=== PATIENT | female | born 1955 | race Caucasian/White ===

== ENCOUNTER 2022-12-09 23:29 | Inpatient (IN) | payer MEDICARE ==
[2022-12-10 00:33] LABS: #Monocytes 0.6 thou/uL (0.11-0.59); #Neutrophils 17.3 thou/uL (1.40-6.50); %Basophils 0.2 % (0.0-1.0); %Eosinophils 0.2 % (0.0-10.0); %Lymphocytes 8.7 % (21.0-51.0); %Monocytes 3.2 % (0.0-10.0); %Neutrophils 86.5 % (42.0-75.0); Hemoglobin 10.8 g/dL (12.0-16.0); Mean Corpuscular HGB CONC 31.1 g/dL (32.0-36.0); Mean Corpuscular Volume 102.7 fl (78.0-98.0); Mean Platelet Volume 11.3 fL (7.4-10.4); Platelet Count 198 10x3/uL (130-400); RBC Distribution Width 15.8 % (11.5-14.5); Red Blood Cell (RBC) Count 3.38 mill/uL (4.20-5.40)
[2022-12-10 00:44] LABS: INR-International Normal Ratio 1.6; Prothrombin Time 19.7 sec (12.0-14.7)
[2022-12-10 00:45] LABS: PTT 32.1 sec (22.9-36.1)
[2022-12-10 00:58] LABS: ALT (SGPT) Less than 7 U/L (8-55); AST (SGOT) 12 U/L (5-34); Albumin 3.3 g/dL (3.4-4.8); Alkaline Phosphatase 102 U/L (40-110); Anion Gap 24 mmol/L (10-20); BUN (Urea Nitrogen) 114 mg/dL (9.8-20.1); Bilirubin, Total 0.4 mg/dL (0.2-1.2); Calc. Creatinine Clearance 0 mL/min (70-130); Carbon Dioxide 15 mmol/L (23-31); Chloride 106 mmol/L (98-107); Estimated GFR 6; Globulin 3.8 g/dL (2.4-3.5); Glucose 97 mg/dL (80-115); Magnesium 1.7 mg/dL (1.6-2.6); Potassium 5.8 mmol/L (3.5-5.1); Protein, Total 7.1 g/dL (5.8-8.1); Sodium 139 mmol/L (136-145)
[2022-12-10 01:43] LABS: Lipase 23 U/L (8-78)
[2022-12-10] MEDS ORDERED: cefTRIAXone (ROCEPHIN) 2 GM VIAL ONE (02:52)
[2022-12-10] MEDS ORDERED: Pantoprazole 40 MG VIAL ONE ×2 (02:52→10:17)
[2022-12-10] MEDS ORDERED: Ipratropium/Albuterol 3 ML NEB NEB PRN (03:39)
[2022-12-10] MEDS ORDERED: Calcium Gluc 4.6 MEQ/10 ML (100 MG/ML) SLOW IVP SCH (03:41)
[2022-12-10] MEDS ORDERED: Dextrose 50% Abboject 50 ML SYRINGE SLOW IVP PRN (03:44)
[2022-12-10] MEDS ORDERED: Sodium Bicarbonate 50 MEQ in Sodium Chloride 0.9% 1,000 ML IV SCH (03:45)
[2022-12-10] MEDS ORDERED: Insulin Regular 300 UNITS/3 ML VIAL IVP SCH ×2 (03:45→19:29)
[2022-12-10] MEDS ORDERED: Dextrose 50% Abboject 50 ML SYRINGE SLOW IVP SCH ×2 (03:45→19:28)
[2022-12-10] MEDS ORDERED: Senokot S 8.6-50 MG TAB PO PRN (03:47)
[2022-12-10] MEDS ORDERED: Azithromycin 500 MG VIAL ONE ×2 (03:49→03:52)
[2022-12-10] MEDS ORDERED: Cyanocobalamin 1000 MCG/ML VIAL IM SCH (08:00)
[2022-12-10] MEDS ORDERED: Ondansetron PF 4 MG/2 ML Vial IVP PRN (08:06)
[2022-12-10] MEDS ORDERED: Heparin 5,000 UNITS/ML VIAL SC SCH (09:00)
[2022-12-10] MEDS ORDERED: Doxycycline 100 MG CAP PO SCH (09:00)
[2022-12-10] MEDS ORDERED: Sodium Bicarbonate 150 MEQ in Dextrose 5% in Water 1,000 ML IV SCH (09:15)
[2022-12-10] MEDS: Pantoprazole 40 MG VIAL IVP SCH ×2 (10:10→20:51)
[2022-12-10 11:02] LABS: Hemoglobin 10.4 g/dL (12.0-16.0)
[2022-12-10 11:38] LABS: Anion Gap 23 mmol/L (10-20); BUN (Urea Nitrogen) 106 mg/dL (9.8-20.1); Calc. Creatinine Clearance 0 mL/min (70-130); Calcium 9.6 mg/dL (7.8-10.44); Carbon Dioxide 13 mmol/L (23-31); Chloride 113 mmol/L (98-107); Estimated GFR 7; Glucose 101 mg/dL (80-115); Potassium 5.7 mmol/L (3.5-5.1); Sodium 143 mmol/L (136-145)
[2022-12-10] MEDS ORDERED: LOKELMA 10 GM PACKET PO SCH (13:58)
[2022-12-10 18:13] LABS: Hemoglobin 11.8 g/dL (12.0-16.0)
[2022-12-10 18:38] LABS: Anion Gap 22 mmol/L (10-20); BUN (Urea Nitrogen) 103 mg/dL (9.8-20.1); Calc. Creatinine Clearance 0 mL/min (70-130); Calcium 9.3 mg/dL (7.8-10.44); Carbon Dioxide 12 mmol/L (23-31); Chloride 113 mmol/L (98-107); Estimated GFR 7; Glucose 100 mg/dL (80-115); Potassium 5.9 mmol/L (3.5-5.1); Sodium 141 mmol/L (136-145)
[2022-12-10] MEDS: Sodium Bicarbonate 150 MEQ in Dextrose 5% in Water 1,000 ML IV SCH (20:52)
[2022-12-11 00:28] LABS: Anion Gap 20 mmol/L (10-20); BUN (Urea Nitrogen) 103 mg/dL (9.8-20.1); Calc. Creatinine Clearance 16 mL/min (70-130); Carbon Dioxide 21 mmol/L (23-31); Estimated GFR 7; Glucose 180 mg/dL (80-115); Potassium 4.3 mmol/L (3.5-5.1)
[2022-12-11 00:39] LABS: Calcium 9.4 mg/dL (7.8-10.44); Chloride 107 mmol/L (98-107); Sodium 144 mmol/L (136-145)
[2022-12-11] MEDS: Sodium Bicarbonate 150 MEQ in Dextrose 5% in Water 1,000 ML IV SCH ×3 (03:09→10:28)
[2022-12-11] MEDS: cefTRIAXone\\ROCEPHIN 1 GM in Sodium Chloride 0.9% 100 ML IVPB SCH (03:09)
[2022-12-11] MEDS: Pantoprazole 40 MG VIAL IVP SCH ×2 (09:47→21:10)
[2022-12-11] MEDS ORDERED: Sodium Bicarbonate 150 MEQ in Dextrose 5% in Water 1,000 ML IV SCH (10:26)
[2022-12-11 10:52] LABS: #Eosinphils 0.1 thou/uL (0.0-0.7); #Monocytes 0.4 thou/uL (0.11-0.59); #Neutrophils 11.3 thou/uL (1.40-6.50); %Basophils 0.2 % (0.0-1.0); %Eosinophils 0.8 % (0.0-10.0); %Lymphocytes 10.9 % (21.0-51.0); %Monocytes 3.1 % (0.0-10.0); %Neutrophils 84.1 % (42.0-75.0); Hemoglobin 10.2 g/dL (12.0-16.0); Mean Corpuscular HGB CONC 29.7 g/dL (32.0-36.0); Mean Corpuscular Hemoglobin 31.6 pg (27.0-31.0); Mean Corpuscular Volume 106.2 fl (78.0-98.0); Mean Platelet Volume 11.6 fL (7.4-10.4); Platelet Count 136 10x3/uL (130-400); RBC Distribution Width 15.9 % (11.5-14.5); Red Blood Cell (RBC) Count 3.23 mill/uL (4.20-5.40); White Blood Cell (WBC) Count 13.4 10x3/uL (4.8-10.8)
[2022-12-11 11:11] LABS: Anion Gap 25 mmol/L (10-20); BUN (Urea Nitrogen) 94 mg/dL (9.8-20.1); Calc. Creatinine Clearance 17 mL/min (70-130); Calcium 8.7 mg/dL (7.8-10.44); Carbon Dioxide 17 mmol/L (23-31); Chloride 104 mmol/L (98-107); Estimated GFR 8; Glucose 109 mg/dL (80-115); Potassium 4.1 mmol/L (3.5-5.1); Sodium 142 mmol/L (136-145)
[2022-12-12] MEDS: cefTRIAXone\\ROCEPHIN 1 GM in Sodium Chloride 0.9% 100 ML IVPB SCH (03:51)
[2022-12-12] MEDS: Pantoprazole 40 MG VIAL IVP SCH (10:30)
[2022-12-12] MEDS: Ondansetron ODT 4 MG TAB PO PRN ×2 (10:30→15:36)
[2022-12-12] MEDS: Acetaminophen 325 MG TAB PO PRN ×2 (10:35→15:37)
[2022-12-12] MEDS ORDERED: LevoFLOXacin 250 MG TAB PO SCH (12:45)
[2022-12-12 13:41] LABS: Anion Gap 19 mmol/L (10-20); BUN (Urea Nitrogen) 88 mg/dL (9.8-20.1); Calc. Creatinine Clearance 18 mL/min (70-130); Calcium 8.3 mg/dL (7.8-10.44); Carbon Dioxide 27 mmol/L (23-31); Chloride 102 mmol/L (98-107); Estimated GFR 8; Glucose 108 mg/dL (80-115); Potassium 3.4 mmol/L (3.5-5.1); Sodium 145 mmol/L (136-145)
[2022-12-12 13:47] LABS: Hemoglobin 11.6 g/dL (12.0-16.0); Mean Corpuscular HGB CONC 30.1 g/dL (32.0-36.0); Mean Corpuscular Hemoglobin 31.4 pg (27.0-31.0); Mean Corpuscular Volume 104.3 fl (78.0-98.0); Mean Platelet Volume 11.7 fL (7.4-10.4); Platelet Count 149 10x3/uL (130-400); RBC Distribution Width 15.7 % (11.5-14.5); Red Blood Cell (RBC) Count 3.69 mill/uL (4.20-5.40); White Blood Cell (WBC) Count 25.9 10x3/uL (4.8-10.8)
[2022-12-12 14:05] LABS: Delete Auto Diff?? YES; Manual Diff?? YES
[2022-12-12 14:41] LABS: Anisocytosis SLIGHT = 6-15 cells HPF (0-5); Band 3 % (5-11); Burr Cells SLIGHT = 2-5 cells HPF (0-1); CellaVision Operator ID LAB.KB; Hypochromia SLIGHT = 6-15 cells HPF (0-5); Lymphocytes 3 % (21-51); Macrocytosis SLIGHT = 6-15 cells HPF (0-5); Monocytes 1 % (0-10); Neutrophil 93 % (42-75); Platelet Adequacy Comment Platelets Normal; Polychromasia SLIGHT = 2-3 cells HPF (0-2); Tear Drops SLIGHT = 2-5 cells HPF (0-1); Total Cell Count 100
[2022-12-12] MEDS: Sodium Chloride 0.45% 1,000 ML IV SCH (21:45)
[2022-12-13] MEDS ORDERED: LevoFLOXacin 250 MG TAB PO SCH (06:00)
[2022-12-13] MEDS: Sodium Chloride 0.45% 1,000 ML IV SCH ×2 (06:15→17:33)
[2022-12-13 09:34] LABS: Hemoglobin 10.3 g/dL (12.0-16.0); Mean Corpuscular HGB CONC 30.1 g/dL (32.0-36.0); Mean Corpuscular Hemoglobin 31.6 pg (27.0-31.0); Mean Corpuscular Volume 104.9 fl (78.0-98.0); Mean Platelet Volume 11.5 fL (7.4-10.4); Platelet Count 148 10x3/uL (130-400); RBC Distribution Width 15.5 % (11.5-14.5); Red Blood Cell (RBC) Count 3.26 mill/uL (4.20-5.40); White Blood Cell (WBC) Count 34.2 10x3/uL (4.8-10.8)
[2022-12-13 09:45] LABS: Delete Auto Diff?? YES; Manual Diff?? YES
[2022-12-13 09:57] LABS: Anion Gap 22 mmol/L (10-20); BUN (Urea Nitrogen) 87 mg/dL (9.8-20.1); Calc. Creatinine Clearance 18 mL/min (70-130); Calcium 8.1 mg/dL (7.8-10.44); Carbon Dioxide 22 mmol/L (23-31); Chloride 100 mmol/L (98-107); Estimated GFR 8; Glucose 97 mg/dL (80-115); Sodium 141 mmol/L (136-145)
[2022-12-13 10:43] LABS: Band 1 % (5-11); CellaVision Operator ID LAB.GE; Lymphocytes 3 % (21-51); Macrocytosis SLIGHT = 6-15 cells HPF (0-5); Monocytes 3 % (0-10); Neutrophil 92 % (42-75); Platelet Adequacy Comment Platelets Normal; Polychromasia SLIGHT = 2-3 cells HPF (0-2); Total Cell Count 101
[2022-12-13 11:13] LABS: Magnesium 1.3 mg/dL (1.6-2.6)
[2022-12-13] MEDS: Potassium Bicarbonate/Cit Ac 20 MEQ TAB PO SCH ×2 (12:32→17:34)
[2022-12-13] MEDS ORDERED: Magnesium Sulfate In Water 4 GM in Premix Bag 1 BAG IVPB SCH (13:15)
[2022-12-13] MEDS: Sodium Bicarbonate Tab 325 MG TAB PO SCH ×2 (14:58→20:35)
[2022-12-13] MEDS ORDERED: Potassium Chloride 20 MEQ in Premix Bag 1 BAG IVPB SCH (17:40)
[2022-12-13] MEDS ORDERED: Sodium Chloride 0.9% 500 ML IV SCH (20:45)
[2022-12-14] MEDS: Sodium Chloride 0.45% 1,000 ML IV SCH (03:16)
[2022-12-14] MEDS: Levothyroxine Sodium 100 MCG TAB PO SCH (05:28)
[2022-12-14 05:48] LABS: Hemoglobin 9.4 g/dL (12.0-16.0); Mean Corpuscular HGB CONC 30.1 g/dL (32.0-36.0); Mean Corpuscular Hemoglobin 31.8 pg (27.0-31.0); Mean Corpuscular Volume 105.4 fl (78.0-98.0); Mean Platelet Volume 11.5 fL (7.4-10.4); Platelet Count 126 10x3/uL (130-400); RBC Distribution Width 15.4 % (11.5-14.5); Red Blood Cell (RBC) Count 2.96 mill/uL (4.20-5.40); White Blood Cell (WBC) Count 28.2 10x3/uL (4.8-10.8)
[2022-12-14 06:12] LABS: ALT (SGPT) Less than 7 U/L (8-55); AST (SGOT) 6 U/L (5-34); Albumin 2.4 g/dL (3.4-4.8); Alkaline Phosphatase 89 U/L (40-110); Anion Gap 21 mmol/L (10-20); BUN (Urea Nitrogen) 86 mg/dL (9.8-20.1); Bilirubin, Total 0.4 mg/dL (0.2-1.2); Calc. Creatinine Clearance 18 mL/min (70-130); Calcium 8.4 mg/dL (7.8-10.44); Carbon Dioxide 23 mmol/L (23-31); Chloride 97 mmol/L (98-107); Estimated GFR 8; Globulin 2.8 g/dL (2.4-3.5); Glucose 98 mg/dL (80-115); Potassium 3.4 mmol/L (3.5-5.1); Protein, Total 5.2 g/dL (5.8-8.1); Sodium 138 mmol/L (136-145)
[2022-12-14 06:38] LABS: Delete Auto Diff?? YES; Manual Diff?? YES
[2022-12-14] MEDS: Lactated Ringer's 1,000 ML IV SCH ×3 (06:45→21:11)
[2022-12-14 07:52] LABS: Band 3 % (5-11); CellaVision Operator ID LAB.GE; Lymphocytes 10 % (21-51); Macrocytosis SLIGHT = 6-15 cells HPF (0-5); Monocytes 1 % (0-10); Neutrophil 86 % (42-75); Platelet Adequacy Comment Platelets Decreased; Polychromasia SLIGHT = 2-3 cells HPF (0-2); Smudge Cells 6.9 %; Total Cell Count 101
[2022-12-14] MEDS ORDERED: Epoetin (ESRD) 10,000 UNITS/ML VIAL SC SCH (09:00)
[2022-12-14] MEDS: Escitalopram Oxalate 10 mg Tablet PO SCH (10:26)
[2022-12-14] MEDS: Cholecalciferol 1,000 UNITS (25 MCG) TAB PO SCH (10:26)
[2022-12-14] MEDS: Albumin 25% 25 GM/100 ML BOT IVPB SCH ×2 (10:26→16:58)
[2022-12-14] MEDS: Sodium Bicarbonate Tab 325 MG TAB PO SCH ×3 (10:26→21:11)
[2022-12-14] MEDS: Calcitriol 0.25 MCG CAP PO SCH (10:27)
[2022-12-14 11:56] LABS: Bilirubin Negative (Negative); Blood, Urine Trace (Negative); Clarity Turbid (Clear); Glucose, Urine (Dipstick) Normal (Negative); Ketone, Urine Negative (Negative); Leukocyte 500 Leu/uL (Negative); Nitrite Negative (Negative); Protein, Urine (Dipstick) 30 mg/dL (Neg-Trace); Specific Gravity, Urine 1.015 (1.002-1.036); Squamous Epithelial 0-3 HPF (0-3); Urobilinogen Normal mg/dL (Less than 2)
[2022-12-14 12:10] LABS: Creatinine, Urine 67.94 mg/dL (47-110)
[2022-12-14 12:14] LABS: Bacteria/HPF Rare-Few HPF (None Seen); Yeast-Budding 1+ HPF (None Seen)
[2022-12-14 14:09] VITALS: BMI 37.5
[2022-12-14] MEDS: Loperamide HCl 2 MG CAP PO PRN ×2 (17:05→21:26)
[2022-12-15] MEDS: Levothyroxine Sodium 100 MCG TAB PO SCH (06:13)
[2022-12-15] MEDS: Lactated Ringer's 1,000 ML IV SCH ×3 (06:14→20:45)
[2022-12-15] MEDS: Calcitriol 0.25 MCG CAP PO SCH (09:59)
[2022-12-15] MEDS: Cholecalciferol 1,000 UNITS (25 MCG) TAB PO SCH (09:59)
[2022-12-15] MEDS: Loperamide HCl 2 MG CAP PO PRN (09:59)
[2022-12-15] MEDS: Sodium Bicarbonate Tab 325 MG TAB PO SCH ×3 (10:00→20:45)
[2022-12-15] MEDS: Escitalopram Oxalate 10 mg Tablet PO SCH (10:00)
[2022-12-15 10:21] LABS: Albumin 2.8 g/dL (3.4-4.8); Anion Gap 21 mmol/L (10-20); BUN (Urea Nitrogen) 75 mg/dL (9.8-20.1); BUN/Creatinine Ratio 15.37; Calc. Creatinine Clearance 20 mL/min (70-130); Calcium 8.7 mg/dL (7.8-10.44); Carbon Dioxide 21 mmol/L (23-31); Chloride 101 mmol/L (98-107); Estimated GFR 9; Glucose 66 mg/dL (80-115); Magnesium 1.7 mg/dL (1.6-2.6); Phosphorus 3.2 mg/dL (2.3-4.7); Potassium 3.4 mmol/L (3.5-5.1); Sodium 140 mmol/L (136-145)
[2022-12-15] MEDS ORDERED: Magnesium Oxide 400 MG TAB PO SCH (14:30)
[2022-12-15 15:33] LABS: ANA Symphony (Qualitative) POSITIVE (Negative); ANA Symphony (Quantitative) 4.4 Ratio (< 0.7 Negative); Jo-1 IgG Antibody Less than 0.3 EliAU/mL (<7 Negative); RNP70 IgG Antibody 2.9 EliAU/mL (<7 Negative); SSA/Ro IgG Antibody 0.5 EliAU/mL (<7 Negative); SSB/La IgG Antibody Less than 0.4 EliAU/mL (<7 Negative); Scleroderma-70 IgG Antibody Less than 0.6 EliAU/mL (<7 Negative); Smith D IgG Antibody 1.7 EliAU/mL (<7 Negative); dsDNA IgG Antibody 1.3 IU/mL (<10 Negative)
[2022-12-15] MEDS: Albumin 25% 25 GM/100 ML BOT IVPB SCH ×2 (17:22→21:34)
[2022-12-16] MEDS: Albumin 25% 25 GM/100 ML BOT IVPB SCH ×4 (06:02→23:45)
[2022-12-16] MEDS: Levothyroxine Sodium 100 MCG TAB PO SCH (06:02)
[2022-12-16] MEDS: Lactated Ringer's 1,000 ML IV SCH ×4 (06:03→23:45)
[2022-12-16 09:24] LABS: #Eosinphils 0.4 thou/uL (0.0-0.7); #Monocytes 0.3 thou/uL (0.11-0.59); #Neutrophils 10.1 thou/uL (1.40-6.50); %Basophils 0.1 % (0.0-1.0); %Eosinophils 2.7 % (0.0-10.0); %Lymphocytes 13.8 % (21.0-51.0); %Monocytes 2.3 % (0.0-10.0); Hemoglobin 8.4 g/dL (12.0-16.0); Mean Corpuscular HGB CONC 30.2 g/dL (32.0-36.0); Mean Corpuscular Hemoglobin 31.7 pg (27.0-31.0); Mean Corpuscular Volume 104.9 fl (78.0-98.0); Mean Platelet Volume 12.1 fL (7.4-10.4); RBC Distribution Width 15.1 % (11.5-14.5); Red Blood Cell (RBC) Count 2.65 mill/uL (4.20-5.40); White Blood Cell (WBC) Count 12.8 10x3/uL (4.8-10.8)
[2022-12-16 09:32] LABS: Platelet Count 86 10x3/uL (130-400)
[2022-12-16 09:35] LABS: Albumin 2.8 g/dL (3.4-4.8); Anion Gap 18 mmol/L (10-20); BUN (Urea Nitrogen) 70 mg/dL (9.8-20.1); BUN/Creatinine Ratio 15.42; Calc. Creatinine Clearance 21 mL/min (70-130); Calcium 8.6 mg/dL (7.8-10.44); Carbon Dioxide 25 mmol/L (23-31); Chloride 102 mmol/L (98-107); Estimated GFR 10; Glucose 85 mg/dL (80-115); Phosphorus 3.2 mg/dL (2.3-4.7); Potassium 3.1 mmol/L (3.5-5.1); Sodium 142 mmol/L (136-145)
[2022-12-16] MEDS ORDERED: Potassium Chloride 20 MEQ TAB PO SCH ×2 (10:15→18:00)
[2022-12-16] MEDS: Calcitriol 0.25 MCG CAP PO SCH (11:31)
[2022-12-16] MEDS: Sodium Bicarbonate Tab 325 MG TAB PO SCH ×3 (11:31→20:15)
[2022-12-16] MEDS: Magnesium Oxide 400 MG TAB PO SCH (11:31)
[2022-12-16] MEDS: Cholecalciferol 1,000 UNITS (25 MCG) TAB PO SCH (11:31)
[2022-12-16] MEDS: Escitalopram Oxalate 10 mg Tablet PO SCH (11:32)
[2022-12-16 12:00] LABS: Magnesium 1.6 mg/dL (1.6-2.6)
[2022-12-16] MEDS: Loperamide HCl 2 MG CAP PO PRN (22:40)
[2022-12-17] MEDS: Lactated Ringer's 1,000 ML IV SCH ×3 (05:34→20:15)
[2022-12-17] MEDS: Levothyroxine Sodium 100 MCG TAB PO SCH (05:34)
[2022-12-17] MEDS: Albumin 25% 25 GM/100 ML BOT IVPB SCH ×3 (05:34→17:53)
[2022-12-17] MEDS: Sodium Bicarbonate Tab 325 MG TAB PO SCH ×3 (09:27→20:15)
[2022-12-17] MEDS: Cholecalciferol 1,000 UNITS (25 MCG) TAB PO SCH (09:27)
[2022-12-17] MEDS: Escitalopram Oxalate 10 mg Tablet PO SCH (09:28)
[2022-12-17] MEDS: Magnesium Oxide 400 MG TAB PO SCH (09:28)
[2022-12-17] MEDS: Calcitriol 0.25 MCG CAP PO SCH (09:28)
[2022-12-17] MEDS ORDERED: Potassium Chloride 20 MEQ TAB PO SCH (09:45)
[2022-12-17 09:49] LABS: #Eosinphils 0.3 thou/uL (0.0-0.7); #Monocytes 0.3 thou/uL (0.11-0.59); %Basophils 0.1 % (0.0-1.0); %Eosinophils 3.2 % (0.0-10.0); %Lymphocytes 17.9 % (21.0-51.0); %Monocytes 3.4 % (0.0-10.0); %Neutrophils 74.2 % (42.0-75.0); Hemoglobin 7.2 g/dL (12.0-16.0); Mean Corpuscular HGB CONC 29.8 g/dL (32.0-36.0); Mean Corpuscular Hemoglobin 31.7 pg (27.0-31.0); Mean Corpuscular Volume 106.6 fl (78.0-98.0); Mean Platelet Volume 11.7 fL (7.4-10.4); RBC Distribution Width 15.3 % (11.5-14.5); Red Blood Cell (RBC) Count 2.27 mill/uL (4.20-5.40); White Blood Cell (WBC) Count 9.5 10x3/uL (4.8-10.8)
[2022-12-17 09:56] LABS: Platelet Count 74 10x3/uL (130-400)
[2022-12-17 10:16] LABS: Albumin 3.3 g/dL (3.4-4.8); Anion Gap 17 mmol/L (10-20); BUN (Urea Nitrogen) 64 mg/dL (9.8-20.1); BUN/Creatinine Ratio 15.09; Calc. Creatinine Clearance 23 mL/min (70-130); Calcium 8.9 mg/dL (7.8-10.44); Carbon Dioxide 25 mmol/L (23-31); Chloride 104 mmol/L (98-107); Estimated GFR 11; Glucose 88 mg/dL (80-115); Iron 60 ug/dL (50-170); Magnesium 1.5 mg/dL (1.6-2.6); Phosphorus 2.9 mg/dL (2.3-4.7); Potassium 4.2 mmol/L (3.5-5.1); Sodium 142 mmol/L (136-145)
[2022-12-17] MEDS ORDERED: Electrolyte Replacement Protocol 1 EACH FS SCH (10:38)
[2022-12-17 23:44] LABS: Iron Binding Capacity, Total 50 mcg/dL (265-497)
[2022-12-18] MEDS: Albumin 25% 25 GM/100 ML BOT IVPB SCH ×2 (01:09→06:25)
[2022-12-18] MEDS: Lactated Ringer's 1,000 ML IV SCH ×3 (06:25→21:13)
[2022-12-18] MEDS: Levothyroxine Sodium 100 MCG TAB PO SCH (06:25)
[2022-12-18] MEDS: Calcitriol 0.25 MCG CAP PO SCH (09:34)
[2022-12-18] MEDS: Cholecalciferol 1,000 UNITS (25 MCG) TAB PO SCH (09:34)
[2022-12-18] MEDS: Escitalopram Oxalate 10 mg Tablet PO SCH (09:34)
[2022-12-18] MEDS: Magnesium Oxide 400 MG TAB PO SCH (09:34)
[2022-12-18] MEDS: Sodium Bicarbonate Tab 325 MG TAB PO SCH ×3 (09:34→21:14)
[2022-12-18 17:24] LABS: #Eosinphils 0.3 thou/uL (0.0-0.7); #Monocytes 0.4 thou/uL (0.11-0.59); #Neutrophils 6.3 thou/uL (1.40-6.50); %Basophils 0.1 % (0.0-1.0); %Eosinophils 3.9 % (0.0-10.0); %Lymphocytes 15.6 % (21.0-51.0); %Monocytes 5.2 % (0.0-10.0); %Neutrophils 73.7 % (42.0-75.0); Hemoglobin 6.9 g/dL (12.0-16.0); Mean Corpuscular Hemoglobin 31.2 pg (27.0-31.0); Mean Corpuscular Volume 104.1 fl (78.0-98.0); Mean Platelet Volume 12.2 fL (7.4-10.4); RBC Distribution Width 15.3 % (11.5-14.5); Red Blood Cell (RBC) Count 2.21 mill/uL (4.20-5.40); White Blood Cell (WBC) Count 8.5 10x3/uL (4.8-10.8)
[2022-12-18 17:26] LABS: Platelet Count 66 10x3/uL (130-400)
[2022-12-18 17:46] LABS: Anion Gap 17 mmol/L (10-20); BUN (Urea Nitrogen) 57 mg/dL (9.8-20.1); Calc. Creatinine Clearance 25 mL/min (70-130); Calcium 9.1 mg/dL (7.8-10.44); Carbon Dioxide 24 mmol/L (23-31); Chloride 105 mmol/L (98-107); Estimated GFR 12; Glucose 88 mg/dL (80-115); Sodium 142 mmol/L (136-145)
[2022-12-19] MEDS: Lactated Ringer's 1,000 ML IV SCH ×4 (03:28→20:16)
[2022-12-19 05:12] LABS: #Eosinphils 0.3 thou/uL (0.0-0.7); #Monocytes 0.5 thou/uL (0.11-0.59); #Neutrophils 6.7 thou/uL (1.40-6.50); %Eosinophils 3.4 % (0.0-10.0); %Lymphocytes 13.5 % (21.0-51.0); %Monocytes 5.7 % (0.0-10.0); %Neutrophils 75.8 % (42.0-75.0); Hemoglobin 7.2 g/dL (12.0-16.0); Mean Corpuscular HGB CONC 29.5 g/dL (32.0-36.0); Mean Corpuscular Hemoglobin 31.7 pg (27.0-31.0); Mean Platelet Volume 11.7 fL (7.4-10.4); RBC Distribution Width 15.3 % (11.5-14.5); Red Blood Cell (RBC) Count 2.27 mill/uL (4.20-5.40); White Blood Cell (WBC) Count 8.8 10x3/uL (4.8-10.8)
[2022-12-19 05:17] LABS: Mean Corpuscular Volume 107.5 fl (78.0-98.0); Platelet Count 72 10x3/uL (130-400)
[2022-12-19 05:31] LABS: Anion Gap 17 mmol/L (10-20); BUN (Urea Nitrogen) 56 mg/dL (9.8-20.1); Calc. Creatinine Clearance 25 mL/min (70-130); Calcium 9.2 mg/dL (7.8-10.44); Carbon Dioxide 26 mmol/L (23-31); Chloride 106 mmol/L (98-107); Estimated GFR 12; Glucose 87 mg/dL (80-115); Potassium 3.9 mmol/L (3.5-5.1); Sodium 145 mmol/L (136-145)
[2022-12-19] MEDS: Levothyroxine Sodium 100 MCG TAB PO SCH (06:07)
[2022-12-19] MEDS: Magnesium Oxide 400 MG TAB PO SCH (09:30)
[2022-12-19] MEDS: Calcitriol 0.25 MCG CAP PO SCH (09:30)
[2022-12-19] MEDS: Sodium Bicarbonate Tab 325 MG TAB PO SCH ×3 (09:30→20:25)
[2022-12-19] MEDS: Cholecalciferol 1,000 UNITS (25 MCG) TAB PO SCH (09:44)
[2022-12-19] MEDS: Escitalopram Oxalate 10 mg Tablet PO SCH (09:46)
[2022-12-19] MEDS ORDERED: Sodium Bicarbonate Tab 325 MG TAB PO SCH (17:00)
[2022-12-20] MEDS: Lactated Ringer's 1,000 ML IV SCH ×2 (03:09→10:31)
[2022-12-20 04:48] LABS: #Eosinphils 0.4 thou/uL (0.0-0.7); #Monocytes 0.5 thou/uL (0.11-0.59); #Neutrophils 6.3 thou/uL (1.40-6.50); %Basophils 0.1 % (0.0-1.0); %Eosinophils 4.1 % (0.0-10.0); %Lymphocytes 16.2 % (21.0-51.0); %Monocytes 5.8 % (0.0-10.0); %Neutrophils 72.1 % (42.0-75.0); Hemoglobin 7.5 g/dL (12.0-16.0); Mean Corpuscular HGB CONC 29.3 g/dL (32.0-36.0); Mean Corpuscular Hemoglobin 31.5 pg (27.0-31.0); Mean Corpuscular Volume 107.6 fl (78.0-98.0); Mean Platelet Volume 10.7 fL (7.4-10.4); RBC Distribution Width 15.3 % (11.5-14.5); Red Blood Cell (RBC) Count 2.38 mill/uL (4.20-5.40); White Blood Cell (WBC) Count 8.7 10x3/uL (4.8-10.8)
[2022-12-20 04:58] LABS: Platelet Count 89 10x3/uL (130-400)
[2022-12-20 05:16] LABS: Anion Gap 16 mmol/L (10-20); BUN (Urea Nitrogen) 54 mg/dL (9.8-20.1); Calc. Creatinine Clearance 26 mL/min (70-130); Calcium 9.2 mg/dL (7.8-10.44); Carbon Dioxide 27 mmol/L (23-31); Chloride 106 mmol/L (98-107); Estimated GFR 12; Glucose 102 mg/dL (80-115); Potassium 3.9 mmol/L (3.5-5.1); Sodium 145 mmol/L (136-145)
[2022-12-20] MEDS: Levothyroxine Sodium 100 MCG TAB PO SCH (05:28)
[2022-12-20] MEDS: Escitalopram Oxalate 10 mg Tablet PO SCH (09:21)
[2022-12-20] MEDS: Calcitriol 0.25 MCG CAP PO SCH (09:21)
[2022-12-20] MEDS: Magnesium Oxide 400 MG TAB PO SCH (09:22)
[2022-12-20] MEDS: Cholecalciferol 1,000 UNITS (25 MCG) TAB PO SCH (09:22)
[2022-12-20] MEDS: Sodium Bicarbonate Tab 325 MG TAB PO SCH ×3 (09:22→20:58)
[2022-12-20] MEDS: Epoetin (ESRD) 10,000 UNITS/ML VIAL SC SCH (09:22)
[2022-12-20] MEDS: Albumin 25% 25 GM/100 ML BOT IVPB SCH ×2 (12:24→17:54)
[2022-12-21] MEDS: Acetaminophen 325 MG TAB PO PRN (00:36)
[2022-12-21] MEDS: Albumin 25% 25 GM/100 ML BOT IVPB SCH ×2 (00:36→05:41)
[2022-12-21 04:54] LABS: #Eosinphils 0.2 thou/uL (0.0-0.7); #Monocytes 0.4 thou/uL (0.11-0.59); #Neutrophils 5.3 thou/uL (1.40-6.50); %Basophils 0.1 % (0.0-1.0); %Eosinophils 3.3 % (0.0-10.0); %Lymphocytes 15.7 % (21.0-51.0); %Neutrophils 74.1 % (42.0-75.0); Hemoglobin 6.6 g/dL (12.0-16.0); Mean Corpuscular HGB CONC 28.8 g/dL (32.0-36.0); Mean Corpuscular Volume 107.5 fl (78.0-98.0); Mean Platelet Volume 12.1 fL (7.4-10.4); RBC Distribution Width 15.3 % (11.5-14.5); Red Blood Cell (RBC) Count 2.13 mill/uL (4.20-5.40); White Blood Cell (WBC) Count 7.2 10x3/uL (4.8-10.8)
[2022-12-21 04:57] LABS: Platelet Count 76 10x3/uL (130-400)
[2022-12-21 05:16] LABS: Albumin 3.8 g/dL (3.4-4.8); Anion Gap 16 mmol/L (10-20); BUN (Urea Nitrogen) 53 mg/dL (9.8-20.1); BUN/Creatinine Ratio 14.36; Calc. Creatinine Clearance 26 mL/min (70-130); Calcium 9.5 mg/dL (7.8-10.44); Carbon Dioxide 26 mmol/L (23-31); Chloride 107 mmol/L (98-107); Estimated GFR 13; Glucose 99 mg/dL (80-115); Magnesium 1.5 mg/dL (1.6-2.6); Phosphorus 2.4 mg/dL (2.3-4.7); Potassium 3.9 mmol/L (3.5-5.1); Sodium 145 mmol/L (136-145)
[2022-12-21] MEDS: Levothyroxine Sodium 100 MCG TAB PO SCH (05:40)
[2022-12-21 07:30] LABS: Hemoglobin 6.6 g/dL (12.0-16.0)
[2022-12-21] MEDS: Escitalopram Oxalate 10 mg Tablet PO SCH (08:28)
[2022-12-21] MEDS: Calcitriol 0.25 MCG CAP PO SCH (08:28)
[2022-12-21] MEDS: Magnesium Oxide 400 MG TAB PO SCH (08:28)
[2022-12-21] MEDS: Sodium Bicarbonate Tab 325 MG TAB PO SCH ×3 (08:28→20:04)
[2022-12-21] MEDS: Cholecalciferol 1,000 UNITS (25 MCG) TAB PO SCH (08:33)
[2022-12-21] MEDS ORDERED: Magnesium Sulfate In Water 4 GM in Premix Bag 1 BAG IVPB SCH (10:00)
[2022-12-22] MEDS: Levothyroxine Sodium 100 MCG TAB PO SCH (05:33)
[2022-12-22 05:37] LABS: #Eosinphils 0.2 thou/uL (0.0-0.7); #Monocytes 0.4 thou/uL (0.11-0.59); #Neutrophils 6.7 thou/uL (1.40-6.50); %Basophils 0.2 % (0.0-1.0); %Eosinophils 2.6 % (0.0-10.0); %Lymphocytes 12.4 % (21.0-51.0); %Neutrophils 78.5 % (42.0-75.0); Hemoglobin 7.9 g/dL (12.0-16.0); Mean Corpuscular HGB CONC 30.4 g/dL (32.0-36.0); Mean Corpuscular Hemoglobin 31.1 pg (27.0-31.0); Mean Corpuscular Volume 102.4 fl (78.0-98.0); Mean Platelet Volume 12.3 fL (7.4-10.4); RBC Distribution Width 17.5 % (11.5-14.5); Red Blood Cell (RBC) Count 2.54 mill/uL (4.20-5.40); White Blood Cell (WBC) Count 8.6 10x3/uL (4.8-10.8)
[2022-12-22 05:42] LABS: Platelet Count 89 10x3/uL (130-400)
[2022-12-22 06:33] LABS: Albumin 3.7 g/dL (3.4-4.8); Anion Gap 17 mmol/L (10-20); BUN (Urea Nitrogen) 53 mg/dL (9.8-20.1); BUN/Creatinine Ratio 14.29; Calc. Creatinine Clearance 26 mL/min (70-130); Calcium 9.6 mg/dL (7.8-10.44); Carbon Dioxide 25 mmol/L (23-31); Chloride 107 mmol/L (98-107); Estimated GFR 13; Glucose 101 mg/dL (80-115); Phosphorus 2.5 mg/dL (2.3-4.7); Potassium 3.8 mmol/L (3.5-5.1); Sodium 145 mmol/L (136-145)
[2022-12-22] MEDS: Sodium Bicarbonate Tab 325 MG TAB PO SCH ×2 (10:21→17:09)
[2022-12-22] MEDS: Magnesium Oxide 400 MG TAB PO SCH (10:22)
[2022-12-22] MEDS: Cholecalciferol 1,000 UNITS (25 MCG) TAB PO SCH (10:22)
[2022-12-22] MEDS: Escitalopram Oxalate 10 mg Tablet PO SCH (10:22)
[2022-12-22] MEDS: Calcitriol 0.25 MCG CAP PO SCH (10:22)
[2022-12-22] MEDS: Epoetin (ESRD) 10,000 UNITS/ML VIAL SC SCH (10:31)
[2022-12-22 16:11] VITALS: BP 113/56; TEMP 98.1
== END 2022-12-22 19:50 | disposition home or self-care (01) | DRG 377 ==
LOC: ERS 23:29 → ERHOLD 12-10 03:50 → OBSVTOIN 12-10 16:08 → 2NO 12-10 17:37
PROVIDERS: ADMIT Student in an Organized Health Care Education/Training Program; ATTEND Hospitalist
PROC: 30233J1 Transfusion of Nonautologous Serum Albumin into Peripheral Vein, Percutaneous Approach (ICD-10-PCS; principal; 2022-12-14)
PROC: 30233N1 Transfusion of Nonautologous Red Blood Cells into Peripheral Vein, Percutaneous Approach (ICD-10-PCS; 2022-12-21)
DX: K92.0 Hematemesis (principal); J18.9 Pneumonia, unspecified organism; L89.313 Pressure ulcer of right buttock, stage 3; N18.6 End stage renal disease; N17.9 Acute kidney failure, unspecified; I12.0 Hypertensive chronic kidney disease with stage 5 chronic kidney disease or end stage renal disease; E87.20 Acidosis, unspecified; E87.5 Hyperkalemia; E66.01 Morbid (severe) obesity due to excess calories; M10.9 Gout, unspecified; E86.0 Dehydration; E86.9 Volume depletion, unspecified; D63.1 Anemia in chronic kidney disease; R91.8 Other nonspecific abnormal finding of lung field; E78.5 Hyperlipidemia, unspecified; D75.89 Other specified diseases of blood and blood-forming organs; G47.00 Insomnia, unspecified; E87.6 Hypokalemia; I95.9 Hypotension, unspecified; E83.42 Hypomagnesemia; D53.9 Nutritional anemia, unspecified; R21 Rash and other nonspecific skin eruption; E88.09 Other disorders of plasma-protein metabolism, not elsewhere classified; K21.9 Gastro-esophageal reflux disease without esophagitis; L89.322 Pressure ulcer of left buttock, stage 2; Z96.653 Presence of artificial knee joint, bilateral; Z68.37 Body mass index [BMI] 37.0-37.9, adult; Z90.49 Acquired absence of other specified parts of digestive tract; Z80.0 Family history of malignant neoplasm of digestive organs; Z74.01 Bed confinement status; R53.81 Other malaise
CPT/HCPCS: 36415; 36430; 71250; 74176; 80048; 80053; 80069; 81001; 82010; 82550; 82570; 82728; 83540; 83550; 83605; 83690; 83735; 83880; 84145; 84156; 84300; 85025; 85060; 85610; 85730; 86038; 86140; 86225; 86235; 86850; 86900; 86901; 87040; 87324; 87449; 93005; 93306; 96361; 96365; 96366; 96367; 97139; C9113; J0456; J0696; J1644; J1815; J2405; J3475; J3480; J3490; J7050; J7070; J7120; J7999; P9016; P9047; Q0162; Q4081